=== PATIENT | male | born 1970 | race Caucasian/White ===

== ENCOUNTER 2017-05-04 22:07 | Emergency (ER) | payer OTHER ==
[~2017-05-04] VITALS: Ht 175.3 cm; Wt 88.5 kg
[~2017-05-04 22:07] MED LIST: FLOMAX0.4 MG PO; NORCO 5-325 TA1 EACH PO; ZOFRAN ODT4 MG PO
[2017-05-04] MEDS ORDERED: EFFEXOR 5050 MG/1 T1 PO (22:19)
[2017-05-04 22:28] LABS: ABSOLUTE BASOPHILS 0.1 thou/uL (0.0-0.2); ABSOLUTE EOSINOPHILS 0.2 thou/uL (0.0-0.7); ABSOLUTE LYMPHOCYTES 1.9 thou/uL (0.8-5.3); ABSOLUTE MONOCYTES 0.6 thou/uL (0.0-1.2); ABSOLUTE NEUTROPHILS 7.4 thou/uL (1.6-8.1); BASOPHILS 0.6 %; HEMATOCRIT 44.4 % (42.0-52.0); HEMOGLOBIN 15.1 gm/dL (14.0-18.0); LYMPHOCYTES 18.2 %; MCH 29.4 pg (26.0-34.0); MCV 86.7 fL (80.0-100.0); MONOCYTES 6.3 %; MPV 7.3 fl. (7.2-11.1); NUCLEATED RBCS 0 /100WBC; PLATELET COUNT* 268 thou/uL (150-400); POLYS 72.9 %; RBC 5.12 mil/uL (4.50-6.00); WBC 10.2 thou/uL (4.0-11.0)
[2017-05-04 22:36] LABS: CALCIUM 8.7 mg/dL (8.5-10.1); CREATININE 1.3 mg/dL (0.6-1.3); POTASSIUM 3.4 mmol/L (3.5-5.1)
[2017-05-04 22:40] LABS: ALBUMIN 3.9 g/dL (3.4-5.0); TOTAL BILIRUBIN 0.3 mg/dL (<0.1-1.0); TOTAL PROTEIN 6.7 g/dL (6.4-8.2)
[2017-05-04 22:42] LABS: URINE BILIRUBIN NEGATIVE (Negative); URINE BLOOD TRACE (Negative); URINE CLARITY CLEAR; URINE COLOR YELLOW; URINE GLUCOSE-RANDOM NEGATIVE (Negative); URINE KETONES NEGATIVE (Negative); URINE LEUKOCYTES-REFLEX NEGATIVE (Negative); URINE NITRITE-REFLEX NEGATIVE (Negative); URINE PROTEIN NEGATIVE (Negative); URINE SPECIFIC GRAVITY 1.015 (1.005-1.030); URINE UROBILINOGEN 0.2 E.U./dl (0.2-1.0)
[2017-05-04] MEDS ORDERED: ONDANSETRON HCL4 M2 PO (23:58)
[2017-05-04] MEDS ORDERED: FLOMAX0.4 MG PO (23:58)
[2017-05-04] MEDS ORDERED: HYDROCODONE-AP1 EAC6 PO (23:58)
[2017-05-05 00:18] VITALS: BP 183/103
== END 2017-05-05 00:19 | disposition home or self-care (01) ==
LOC: M.ERS 22:07
PROVIDERS: Physician Assistant
DX: N20.0 Calculus of kidney (principal); F41.9 Anxiety disorder, unspecified; F17.200 Nicotine dependence, unspecified, uncomplicated; Z87.442 Personal history of urinary calculi

== ENCOUNTER 2018-08-17 22:11 | Emergency (ER) | payer OTHER ==
[~2018-08-17] VITALS: Ht 175.3 cm; Wt 90.7 kg
[~2018-08-17 22:11] MED LIST changes: +EFFEXOR 5050 MG/1 T1 PO; +HYDROCODONE-AP1 EAC6 PO; +ONDANSETRON HCL4 M2 PO
[2018-08-17] MEDS ORDERED: ACYCLOVIR 400400 MG PO (22:35)
[2018-08-17 22:55] VITALS: BP 166/99
--- NOTE | 2018-08-18 15:40 | EKG ---
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: [facility] : 1970 Requested By: Joanna Copeland Order Number: [id number] Debbie MD: Brian Arana Measurements Intervals [place] Rate: 69 P: -17 DC: 162 QRS: -22 QRSD: 92 T: 15 QT: 373 QTc: 400 Interpretive Statements Sinus rhythm Borderline left axis deviation Baseline wander in lead(s) I,II,aVR No previous ECG available for comparison Electronically Signed On 08-18-2018 15:40:45 CDT by Brian Arana [email or web address] <ELECTRONICALLY SIGNED> By: Brian Arana MD, [facility] 08/18/18 1540 2218 17 Brian Arana MD, FACC /EPI
== END 2018-08-17 22:55 | disposition home or self-care (01) ==
LOC: M.ERS 22:11
DX: G51.0 Bell's palsy (principal); F41.9 Anxiety disorder, unspecified; Z87.442 Personal history of urinary calculi